=== PATIENT | female | born 1995 | race Caucasian/White ===

== ENCOUNTER 2018-02-06 12:51 | Emergency (ER) | payer OTHER ==
--- NOTE | 2018-02-06 15:22 | EDPHY ---
H & P Stated Complaint: Fell snowboarding,+helmet,no LOC;sent for eval poss concussion Time Seen by Provider: 02/06/18 13:55 HPI/ROS: CHIEF COMPLAINT: Persistent severe headache following head injury HISTORY OF PRESENT ILLNESS: The patient presents to the ED with a 2 day history of a persistent severe headache following a fall snowboarding 2 days ago. The patient does report associated photophobia and problems with concentration. The patient was seen at her primary care provider's office and referred to the ED for further evaluation. The patient denies any acute neck pain, numbness, weakness, chest, back or extremity pain. Patient reports she takes no regular medication. The patient has no prior history of head injury. The patient has had no infectious symptoms or additional acute complaints. REVIEW OF SYSTEMS: A comprehensive 10 point review of systems is otherwise negative aside from elements mentioned in the history of present illness. Source: Patient Exam Limitations: No limitations - Personal History LMP (Females 10-55): 15-21 Days Ago Current Tetanus Diphtheria and Acellular Pertussis (TDAP): Yes - Medical/Surgical History Other PMH: neg per pt - Social History Smoking Status: Never smoked - Physical Exam Exam: General Appearance: Alert, no distress Head: Atraumatic Eyes: Pupils equal, round, reactive ENT, Mouth: No hemotympanum, no oral trauma Neck: Nontender, trachea midline Respiratory: No chest wall tender, subcutaneous air, lungs clear bilaterally Cardiovascular: Regular rate and rhythm Abdomen: Abdomen is soft and nontender, pelvis stable Skin: No lacerations, No abrasion Back: No midline T/L/S pain Extremities: Nontender, full range of motion Neurological: A&Ox3, normal motor function, normal sensory exam Constitutional: Initial Vital Signs Temperature (C) 36.6 C 02/06/18 12:52 Heart Rate 72 02/06/18 12:52 Respiratory Rate 16 02/06/18 12:52 Blood Pressure 105/73 02/06/18 12:52 O2 Sat (%) 98 02/06/18 12:52 O2 Delivery Mode Room Air Allergies/Adverse Reactions: [email or web address] Allergy (Uncoded 02/06/18 12:56) Home Medications: Medication Instructions Recorded Antibx For Strep Throat 02/06/18 Medical Decision Making - Diagnostics Imaging Results: Imaging Impressions Head CT 02/06/18 14:08 Impression: 1. No significant intracranial abnormality seen. 2. Nonspecific right maxillary sinus disease. If symptoms worsen, additional imaging may be necessary. Findings discussed with Calderon Marcus at 14:50 hour, 02/06/2018. ED Course/Re-evaluation: The patient presents to the ED for evaluation of a severe headache for the past 2 days. She was noted to have a GCS of 15. I have cleared her cervical spine clinically. The patient was taken for a stat noncontrast head CT scan which demonstrates no evidence of intracranial hemorrhage or skull fracture. The patient be discharged home with concussion aftercare instructions. She has been advised to take Tylenol and ibuprofen as needed for pain. She is referred to our concussion specialist Dr. Nix. The patient did undergo serial examinations in the ED by myself over a 2 hr period. Differential Diagnosis: Differential diagnosis considered includes concussion, intracranial hemorrhage, skull fracture Departure - Departure Disposition: Home, Routine, Self-Care Clinical Impression: Concussion Condition: Good Instructions: Concussion in Children (ED) Additional Instructions: 1. Take Ibuprofen or Motrin 600 mg by mouth three times a day. 2. Please follow up with our concussion specialist Dr. Nix for any ongoing symptoms. Concussion aftercare as directed and pamphlet. 3. Your CT scan demonstrates no evidence of a bleed or skull fracture. Referrals: Margaret Nix MD [Medical Doctor] - As per Instructions
[2018-02-06 15:43] VITALS: BP 112/70; PULSE 76; RESP 14; TEMP 97.7; O2SAT 96
== END 2018-02-06 15:43 | disposition home or self-care (01) ==
DX: S06.0X0A Concussion without loss of consciousness, initial encounter (principal); V00.311A Fall from snowboard, initial encounter; Y99.8 Other external cause status; Y93.23 Activity, snow (alpine) (downhill) skiing, snowboarding, sledding, tobogganing and snow tubing